=== PATIENT | male | born 1945 | race Caucasian/White ===

== ENCOUNTER 2024-03-01 11:08 | Emergency (ER) | payer OTHER, MEDICARE, SELFPAY ==
[2024-03-01 11:09] VITALS: BP 136/89; PULSE 140; RESP 30; TEMP 37.9; O2SAT 100
--- NOTE | 2024-03-01 11:14 | XR_ITS ---
WS: [id number] LEFT SHOULDER: 2 VIEW(S) TECHNIQUE: Internal and external rotation. HISTORY: injury COMPARISON: None available. There is extensive subcutaneous emphysema over the LEFT upper thorax. Emphysema infiltrates through t he pectoralis muscle. 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 It would be difficult to exclude small avulsion fractures of the AC joint. Humeral head is normally positioned at the glenoid. Visualized ribs are clear. LEFT upper dariusz g field is clear. XR/XR shoulder LT min 2V* [id number] IMPRESSION: 1. Extensive subcutaneous emphysema of uncertain etiology. Within the visualiz ed LEFT thorax no pneumothorax identified. 2. AC joint arthropathy. No fractures are identified.
[2024-03-01 11:22] VITALS: BP 136/89; PULSE 134; RESP 22; O2SAT 100
--- NOTE | 2024-03-01 11:27 | W.ED.FALL ---
HPI - Fall General: Chief Complaint: Fall Stated Complaint: fall, left shoulder pain Time Seen by Provider: 03/01/24 11:11 Source: EMS Mode of arrival: EMS Limitations: altered mental status History of Present Illness: 78-year-old male who is currently on hospice his hospice nurse had found him this morning down on the ground with unwitnessed fall he does have bruising to his left shoulder he is quite altered but he is altered at baseline is appear to be in pain in the shoulder. Related Data Home Medications Medication Instructions Recorded Confirmed allopurinol 100 mg tablet 50 mg PO DAILY 03/01/24 03/01/24 ascorbic acid (vitamin C) 500 mg 250 mg PO DAILY 03/01/24 03/01/24 tablet (Vitamin C) cholecalciferol (vitamin D3) 50 100 mcg PO DAILY 03/01/24 03/01/24 mcg (2,000 unit) tablet (Vitamin D3) citalopram 40 mg tablet 40 mg PO QAM 03/01/24 03/01/24 cyanocobalamin (vitamin B-12) 1,000 mcg PO DAILY 03/01/24 03/01/24 1,000 mcg tablet divalproex 250 mg tablet,delayed 250 mg PO BID 03/01/24 03/01/24 release ferrous sulfate 324 mg (65 mg 324 mg PO DAILY 03/01/24 03/01/24 iron) tablet,delayed release levothyroxine 50 mcg tablet 50 mcg PO QAM 03/01/24 03/01/24 metformin 500 mg tablet,extended 500 mg PO DAILY 03/01/24 03/01/24 release 24 hr multivitamin with minerals 1 tab PO DAILY 03/01/24 03/01/24 quetiapine 50 mg tablet 50 mg PO BEDTIME 03/01/24 03/01/24 Allergies Allergy/AdvReac Type Severity Reaction Status Date / Time Advil Allergy Unknown Uncoded 07/30/21 17:16 Review of Systems General: Reports: ROS unobtainable due to mental status Physical Exam Const: COMMON NORMALS: negative for patient oriented x3 HENMT: COMMON NORMALS: normocephalic and atraumatic HEAD & SCALP: normocephalic and atraumatic Eye: COMMON NORMALS: Equal, round and reactive pupils present and EOMs intact bilaterally PUPIL: Yes Equal, round and reactive pupils present Neck/C-Spine: COMMON NORMALS: full ROM and supple Chest: COMMONS NORMALS: normal inspection of the chest and normal palpation of entire chest wall Resp: COMMON NORMALS: normal respiratory effort, No retractions, No use of accessory muscles and clear to auscultation bilaterally AUSCULTATION: clear to auscultation bilaterally Cardio: COMMON NORMALS: regular rate, regular rhythm and No murmurs present (Cardio) RATE: regular rate RHYTHM: regular rhythm GI: COMMON NORMALS: Normal to inspection, nondistended, normoactive bowel sounds present, Soft to palpation, non-tender and no masses PALPATION: Yes Soft to palpation Extremity: NARRATIVE EXTREMITY EXAM: Bruising to left shoulder Neuro: COMMON NORMALS: moves all extremities and no focal motor deficits; negative for patient oriented x3 Psych: COMMON NORMALS: cooperative; negative for mental status grossly normal Skin: COMMON NORMALS: no rashes or lesions noted and no wounds GENERAL SKIN EXAM: no rashes or lesions noted Course Vital Signs: Vital signs: Vital Signs Temperature 100.3 F H 03/01/24 11:09 Pulse Rate 134 H 03/01/24 11:22 Respiratory Rate 22 H 03/01/24 11:22 Blood Pressure 136/89 03/01/24 11:22 Pulse Oximetry 100 03/01/24 11:22 MDM - Fall Medical Decision Making Patient presents here after a fall x-ray did show a large amount of subcu air family had wanted patient placed [facility] [place] [facility] still want him on hospice no treatment was attempting placement [facility] and patient went to cardiac arrest here he did pass away and his time of was 1324 Medical Records I reviewed the patient's medical records. Lab Data Radiology Impressions Shoulder X-Ray 03/01/24 11:14 IMPRESSION: 1. Extensive subcutaneous emphysema of uncertain etiology. Within the visualized LEFT thorax no pneumothorax identified. 2. AC joint arthropathy. No fractures are identified. All radiology interpretation(s) finalized by discharge Discharge Plan Discharge Patient Disposition: Clinical Impression: Fall, Cardiac arrest Condition: Stable Prescriptions: No Action divalproex 250 mg tablet,delayed release (DR/EC) 250 mg PO BID levothyroxine 50 mcg tablet 50 mcg PO QAM quetiapine 50 mg tablet 50 mg PO BEDTIME citalopram 40 mg Tablet 40 mg PO QAM cyanocobalamin (vitamin B-12) 1,000 mcg Tablet 1,000 mcg PO DAILY allopurinol 100 mg Tablet 50 mg PO DAILY ascorbic acid (vitamin C) [Vitamin C] 500 mg Tablet 250 mg PO DAILY multivitamin with minerals Tablet 1 tab PO DAILY metformin 500 mg Tablet Extended Release 24 Hr 500 mg PO DAILY ferrous sulfate 324 mg (65 mg iron) Tablet,Delayed Release (Dr/Ec) 324 mg PO DAILY cholecalciferol (vitamin D3) [Vitamin D3] 50 mcg (2,000 unit) Tablet 100 mcg PO DAILY Discharge Orders: Discharge ED (Routine); Ordered 03/01/24 Ordered By: Kelly Oviedo Referrals: Leland Gonzalez [Primary Care Provider] - Discharge Diet: Advance as tolerated Discharge Activity: Resume usual activity Patient Instructions: Contusion in Adults (ED) Coding Level of Care Code ED Accounts Receivable Specialist for Veena Sherman
--- NOTE | 2024-03-01 11:45 | PC.NURSE ---
pt refusing to keep pulse ox monitor on finger. pt keeps removing pulse ox and blood pressure cuff.
--- NOTE | 2024-03-01 11:53 | PC.PHAR ---
Addendum entered by Lucy Larios 03/01/24 13:03: [facility] was added. Addendum entered by Lucy Larios 03/01/24 12:19: [facility]ing on [facility] for [facility]. Verified the medications on his most updated list from [facility] with last fill dates and days supply. Addendum entered by Luyc Larios 03/01/24 11:55: Family does not know meds. Original Note: Pt is no longer with [facility]. Pt is only [facility] list 03/01/24 11:30am
--- NOTE | 2024-03-01 12:55 | PC.SOCIAL ---
Placement Spoke with patient's son, Ed and daughter Rebeka at [facility]. They report that patient is on hospice with [facility], and they are supposed to be getting in contact with his director social service at the [place] for an end of life contract at [facility]. They report that he has been denied by [facility] in the past for behaviors, but he has progressed enough that they may be willing to accept. Patient was a and completed high school. Faxed information to [facility], Kya, and NERY Renteria at [place]. Spoke with Kya, who reports that they did not say that they were going to work with [facility] for placement, they are not sure who told family that. They report that they advised he go to the ER to have his shoulder checked out. Spoke with Daja at [facility] who confirms she received referral. She states that she will reach out to [facility] for more information. She does not anticipate that they will be able to get authorization for an EOL contract in place today. Voicemail left for Leydi, as well as for June at [facility]. Secure email sent as well. Included on fax to Leydi that patient wanted to be placed at [facility] on EOL contract.
--- NOTE | 2024-03-01 13:13 | PC.SOCIAL ---
Leydi at [facility] reports that they will not be able to get end of life contract approved today; but Kya working on 5day respite at [facility]. [facility]. Called kya back and confirmed this. NERY Garcia is supposed to be calling family to update them. CM will go update family, family is to transport if they wish to take 5days respite, but patient can be discharged home with family at this time.
--- NOTE | 2024-03-01 13:38 | PC.NURSE ---
this nurse was notified by WERNER Cooper that pts family said they thought pt was passing. this nurse went to pts room and Kennedy RN notified Dr. Oviedo. this nurse could not palpate a pulse on pt. Dr. Oviedo at bedside and called [facility] at [phone].
== END 2024-03-01 13:24 | disposition expired ==
PROVIDERS: Emergency Provider Emergency Medicine; PCP Internal Medicine
DX: I46.9 Cardiac arrest, cause unspecified (principal); Z79.84 Long term (current) use of oral hypoglycemic drugs
CPT/HCPCS: 73030; 99283